=== PATIENT | female | born 1945 | race Caucasian/White ===

== ENCOUNTER 2020-01-02 16:52 | Emergency (ER) | payer MEDICARE, BC ==
--- NOTE | 2020-01-02 17:11 | ED Physician Documentation ---
History of Present Illness - Stated complaint Stated Complaint: SORE ON RT SIDE - Chief complaint Chief Complaint: General - History obtained from History obtained from: Patient (Without specific recollected trauma she developed a mass on her right lower quadrant abdominal wall today. It is mildly painful. She never had anything like this before.) Review of Systems Constitutional: denies: Fever, Chills GI: denies: Nausea, Vomiting, Diarrhea PD PAST MEDICAL HISTORY - Allergies Allergies/Adverse Reactions: Allergies Allergy/AdvReac Type Severity Reaction Status Date / Time No Known Drug Allergies Allergy Verified 01/02/20 16:58 PD ED PE NORMAL - Vitals Vital signs reviewed: Yes - General General: Alert and oriented X 3, No acute distress - Abdomen Abdomen: Normal bowel sounds, Soft, Non tender, Other (On the right lower quadrant abdominal wall there is a mass measuring about 8 cm x 3 cm. There is overlying bruising. It is most consistent with hematoma.) - Neuro Neuro: Alert and oriented X 3, Normal speech Results - Vitals Vitals: Vital Signs - 24 hr 01/02/20 16:58 Temperature 36.9 C Heart Rate 94 Respiratory 16 Rate Blood Pressure 149/73 H O2 Saturation 97 Oxygen O2 Source Room air - Labs Labs: Laboratory Tests 01/02/20 01/02/20 17:12 17:12 WBC 7.7 RBC 4.43 Hgb 13.9 Hct 42.7 MCV 96.4 MCH 31.4 H MCHC 32.6 RDW 13.2 Plt Count 183 MPV 11.2 H Neut # (Auto) 4.8 Lymph # (Auto) 2.2 [place] # (Auto) 0.7 Eos # (Auto) 0.1 Baso # (Auto) 0.0 Absolute Nucleated RBC 0.00 Nucleated RBC % 0.0 Sodium 140 Potassium 3.4 L Chloride 106 Carbon Dioxide 24 Anion Gap 10.0 BUN 14 Creatinine 0.6 Estimated GFR (MDRD) 97 Glucose 113 H Calcium 9.8 Total Bilirubin 0.6 AST 20 ALT 15 Alkaline Phosphatase 109 Total Protein 7.3 Albumin 4.2 Globulin 3.1 Albumin/Globulin Ratio 1.4 Lipase 31 PD MEDICAL DECISION MAKING - ED course ED course: 74-year-old woman with an abdominal wall lesion that started acutely today, examination was most consistent with a hematoma and this was corroborated on CT imaging for interpreted contemporaneously by me. Departure - Departure Disposition: 01 Home, Self Care Clinical Impression: Abdominal wall hematoma Qualifiers: Encounter type: initial encounter Qualified Code(s): S30.1XXA - Contusion of abdominal wall, initial encounter Condition: Good Record reviewed to determine appropriate education?: Yes Instructions: ED Hematoma Comments: You were seen today for a lesion of your abdominal wall that seems most consistent clinically with a hematoma. This was corroborated on CT imaging. This is nothing to worry about, but she may have some swelling and discoloration there for some time. You can ice as needed, Tylenol or ibuprofen if the pain is significant. Otherwise no specific follow-up is needed as long as you do not worsen.
[2020-01-02 17:23] LABS: BASOPHILS % (AUTO) 0.3 %; EOSINOPHILS # (AUTO) 0.1 10^3/uL (0.0-0.7); EOSINOPHILS % (AUTO) 0.9 %; HGB - HEMOGLOBIN 13.9 g/dL (12.0-16.0); LYMPHOCYTES # (AUTO) 2.2 10^3/uL (1.5-3.5); LYMPHOCYTES % (AUTO) 28.1 %; MEAN CORPUSCULAR HEMOGLOBIN 31.4 pg (27.0-31.0); MEAN CORPUSCULAR HGB CONC 32.6 g/dL (32.0-36.0); MEAN CORPUSCULAR VOLUME 96.4 fL (81.0-99.0); MEAN PLATELET VOLUME 11.2 fL (7.9-10.8); MONOCYTES # (AUTO) 0.7 10^3/uL (0.0-1.0); MONOCYTES % (AUTO) 8.8 %; NEUTROPHILS # (AUTO) 4.8 10^3/uL (1.5-6.6); NEUTROPHILS % (AUTO) 61.6 %; PLT - PLATELET COUNT 183 10^3/uL (130-450); RED BLOOD COUNT 4.43 10^6/uL (4.20-5.40); RED CELL DISTRIBUTION WIDTH 13.2 % (12.0-15.0); WHITE BLOOD COUNT 7.7 x10^3/uL (4.8-10.8)
[2020-01-02] MEDS ORDERED: IOVERSOL 320 100 ML VIAL IVP ONE ×2 (17:29→18:13)
[2020-01-02 17:37] LABS: ALBUMIN 4.2 g/dL (3.2-5.5); ALBUMIN/GLOBULIN RATIO 1.4 (1.0-2.2); BILIRUBIN,TOTAL 0.6 mg/dL (0.2-1.0); CALCIUM 9.8 mg/dL (8.5-10.3); CREATININE 0.6 mg/dL (0.4-1.0); TOTAL PROTEIN 7.3 g/dL (6.7-8.2)
--- NOTE | 2020-01-02 18:50 | CT Report ---
Reason: RLQ wall mass Procedure Date: 01/02/2020 Accession Number: [id number] / [id number] Procedure: CT - Abdomen/Pelvis W CPT Code: Final Report FULL RESULT: EXAM: CT ABDOMEN AND PELVIS EXAM DATE: 01/02/2020 06:12 PM. CLINICAL HISTORY: Right hip pain. Injury. Right lower quadrant abdominal wall mass. COMPARISONS: None. TECHNIQUE: Routine helical CT imaging was performed through the abdomen and pelvis. IV contrast: 90 mL Optiray 320 IV. Enteric contrast: No. Reconstructions: Coronal and sagittal. In accordance with CT protocol optimization, one or more of the following dose reduction techniques were utilized for this exam: automated exposure control, adjustment of mA and/or KV based on patient size, or use of iterative reconstructive technique. FINDINGS: Lung Bases: Unremarkable. Liver: The liver size is normal. There are multiple round low-density lesions within the liver. The largest lesions are consistent with cysts. The smallest lesions are too small to measure but probably cysts. Gallbladder/Bile Ducts: Unremarkable. Spleen: Normal. Pancreas: Normal. Adrenal Glands: Normal. Kidneys: Normal. No masses or hydronephrosis. Peritoneal Cavity/Bowel: Normal. No free fluid, free air or adenopathy. No masses or acute inflammatory process. Pelvic Organs: Urinary bladder is nearly empty. Uterus is not well characterized. Vasculature: The abdominal aorta is normal in caliber. Bones: No significant abnormality. Other: There is a small subcutaneous hematoma located in the subcutaneous tissue lateral to the right iliac crest and measuring 13 x 14 x 15 mm. IMPRESSION: 1. Small subcutaneous tissue hematoma lateral to the right iliac crest measuring 13 x 14 x 15 mm. 2. No other significant acute abnormality. 3. Probable incidental small liver cysts. [facility]
[2020-01-02 19:07] VITALS: BP 125/63
== END 2020-01-02 19:04 | disposition home or self-care (01) ==
LOC: ED 16:52
DX: S30.1XXA Contusion of abdominal wall, initial encounter (principal); X58.XXXA Exposure to other specified factors, initial encounter
CPT/HCPCS: 36415; 74177; 80053; 83690; 85025; 99283; 99284; Q9967

== ENCOUNTER 2020-07-13 08:58 | Outpatient (CLI) | payer MEDICARE, BC ==
[2020-07-13 11:58] LABS: BASOPHILS % (AUTO) 0.4 %; EOSINOPHILS # (AUTO) 0.1 10^3/uL (0.0-0.7); EOSINOPHILS % (AUTO) 1.3 %; HGB - HEMOGLOBIN 13.8 g/dL (12.0-16.0); LYMPHOCYTES # (AUTO) 1.5 10^3/uL (1.5-3.5); LYMPHOCYTES % (AUTO) 27.9 %; MEAN CORPUSCULAR HEMOGLOBIN 31.2 pg (27.0-31.0); MEAN CORPUSCULAR HGB CONC 31.4 g/dL (32.0-36.0); MEAN CORPUSCULAR VOLUME 99.1 fL (81.0-99.0); MEAN PLATELET VOLUME 11.9 fL (7.9-10.8); MONOCYTES # (AUTO) 0.4 10^3/uL (0.0-1.0); MONOCYTES % (AUTO) 6.8 %; NEUTROPHILS # (AUTO) 3.5 10^3/uL (1.5-6.6); NEUTROPHILS % (AUTO) 63.4 %; PLT - PLATELET COUNT 190 10^3/uL (130-450); RED BLOOD COUNT 4.43 10^6/uL (4.20-5.40); RED CELL DISTRIBUTION WIDTH 13.1 % (12.0-15.0); WHITE BLOOD COUNT 5.4 x10^3/uL (4.8-10.8)
[2020-07-13 12:14] LABS: ALBUMIN 4.3 g/dL (3.2-5.5); ALBUMIN/GLOBULIN RATIO 1.5 (1.0-2.2); ALKALINE PHOSPHATASE 77 IU/L (42-121); ALT ALANINE AMINOTRANSFERASE 18 IU/L (10-60); AST ASPARTATE AMINOTRANSFERASE 19 IU/L (10-42); BILIRUBIN,TOTAL 1.1 mg/dL (0.2-1.0); BUN - BLOOD UREA NITROGEN 21 mg/dL (6-20); CALCIUM 10.2 mg/dL (8.5-10.3); CARBON DIOXIDE - CO2 29 mmol/L (21-32); CHLORIDE 105 mmol/L (101-111); CHOL/HDL RATIO 2.7 (<4.4); CHOLESTEROL 239 mg/dL; CREATININE 0.8 mg/dL (0.4-1.0); GLUCOSE 110 mg/dL (70-100); HDL CHOLESTEROL 88 mg/dL; LDL CHOLESTEROL,CALCULATED 132 mg/dL; LDL/HDL RATIO 1.5 (<4.4); SODIUM 143 mmol/L (135-145); TOTAL PROTEIN 7.2 g/dL (6.7-8.2); VLDL CHOLESTEROL 19 mg/dL
[2020-07-13 12:28] LABS: FOLATE 14.42 ng/mL (5.90 - >24.8)
== END 2020-07-13 23:59 | disposition home or self-care (01) ==
LOC: LAB.WCP 08:58
PROVIDERS: ATTEND Family Medicine
DX: H40.9 Unspecified glaucoma (principal); R41.3 Other amnesia
CPT/HCPCS: 36415; 80053; 80061; 81599; 82607; 82746; 83721; 84443; 85025; 86592

== ENCOUNTER 2020-08-02 11:55 | Outpatient (CLI) | payer MEDICARE, BC ==
--- NOTE | 2020-08-02 12:55 | CT Report ---
PROCEDURE: HEAD WO INDICATIONS: GLAUCOMA, MEMORY IMPAIRMENT TECHNIQUE: Noncontrast 4.5 mm thick angled axial sections acquired from the foramen magnum to the vertex. For r adiation dose reduction, the following was used: automated exposure control, adjustment of mA and/or kV according to patient size. COMPARISON: None. FINDINGS: Image quality: Excellent. CSF spaces: Basal cisterns are patent. No extra-axial fluid collections. Ventricles are normal in size and shape. Brain: No midline shift. No intracranial masses or hemorrhage. Subcortical and periventricular whit e matter hypodensities are consistent with microvascular ischemic disease. There is mild diffuse danielle ical atrophy. Intracranial vasculature has atherosclerotic calcifications. Skull and face: Calvarium and visualized facial bones are intact, without suspicious lesions. Sinuses: Visualized sinuses and mastoids are clear. IMPRESSION: 1. No acute intracranial abnormality. 2. 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 Reviewed by: Luigi Mckeon on 08/02/2020 12:53 PM [facility] Approved by: Luigi Mckeon on 08/02/2020 12:53 PM [facility] Station ID: [id number]
== END 2020-08-02 11:56 | disposition home or self-care (01) ==
LOC: DI 11:55
PROVIDERS: ATTEND Family Medicine
DX: R41.3 Other amnesia (principal); H40.9 Unspecified glaucoma
CPT/HCPCS: 70450

== ENCOUNTER 2021-07-10 08:00 | Outpatient (CLI) | payer MEDICARE, BC | END 2021-07-10 23:59 | disposition home or self-care (01) | LOC: LAB.N 08:00 | PROVIDERS: ATTEND Physician Assistant | DX: R41.3 Other amnesia (principal) | CPT/HCPCS: 82962 ==

== ENCOUNTER 2021-07-30 08:00 | Outpatient (CLI) | payer MEDICARE, BC | END 2021-07-30 23:59 | LOC: LAB.N 08:00 | PROVIDERS: ATTEND Nurse Practitioner | DX: T81.49XA Infection following a procedure, other surgical site, initial encounter (principal) | CPT/HCPCS: 87070; 87181; 87205 ==